=== PATIENT | male | born 1955 | race Caucasian/White ===

== ENCOUNTER 2018-05-12 19:52 | Emergency (ER) | payer MEDICAID ==
[~2018-05-12] VITALS: Ht 182.9 cm; Wt 110.0 kg
[2018-05-12] MEDS ORDERED: HALOPERIDOL LACTATE 5MG/ML VIAL IM ONE (20:45)
[2018-05-12] MEDS ORDERED: LORAZEPAM 2MG/ML CPJ IM ONE (20:45)
[2018-05-12 21:49] LABS: BASOPHILS % 0.6 % (0.0-2.0); EOSINOPHILS % 0.5 % (0.0-5.0); HEMATOCRIT. 39.4 % (42.0-52.0); HEMOGLOBIN. 12.9 g/dL (14.0-18.0); LYMPHOCYTES % 18.6 % (20.0-50.0); MEAN CORPUSCULAR HEMOGLOBIN 28.4 pg (28.0-32.0); MEAN CORPUSCULAR VOLUME 86.5 fL (80.0-94.0); MEAN PLATELET VOLUME 8.5 fl (7.4-10.4); MONOCYTES % 12.7 % (2.0-8.0); NEUTROPHILS % 67.6 % (40.0-76.0); PLATELET 268 x1000/uL (130-400); RED BLOOD CELL COUNT 4.56 mill/uL (4.7-6.1); RED CELL DISTRIBUTION WIDTH 13.4 % (11.6-14.6)
[2018-05-12 21:56] LABS: CHLORIDE 103 mEq/L (98-107)
[2018-05-12 22:00] LABS: ETHANOL BLOOD < 10 mg/dL
[2018-05-12 22:54] LABS: CLARITY URINE CLEAR (CLEAR); COLOR URINE YELLOW (YELLOW); KETONES URINE 1+ (NEGATIVE); LEUKOCYTE ESTERASE URINE NEGATIVE (NEGATIVE); NITRITE URINE NEGATIVE (NEGATIVE); OCCULT BLOOD URINE 1+ (NEGATIVE); PH URINE 5.5 (4.5-8.0); PROTEIN URINE 2+ (NEGATIVE); SPECIFIC GRAVITY URINE 1.039 (1.005-1.030); UROBILINOGEN URINE 0.2 E.U./dL (0.2-1.0)
[2018-05-12 23:04] LABS: *AMPHETAMINES SCREEN URINE PRESUMTIVE POSITIVE (NEGATIVE); *BARBITURATES SCREEN URINE NEGATIVE (NEGATIVE); *BENZODIAZEPINES SCREEN URINE NEGATIVE (NEGATIVE); *COCAINE SCREEN URINE PRESUMTIVE POSITIVE (NEGATIVE); CANNABINOID URINE SCREEN NEGATIVE (NEGATIVE); METHADONE URINE SCREEN NEGATIVE (NEGATIVE); OPIATES URINE SCREEN NEGATIVE (NEGATIVE); PHENCYCLIDINE URINE SCREEN NEGATIVE (NEGATIVE)
[2018-05-13 16:07] VITALS: BP 135/73
== END 2018-05-13 16:18 | disposition home or self-care (01) ==
LOC: ER 19:52
DX: T40.5X1A Poisoning by cocaine, accidental (unintentional), initial encounter (principal); E11.9 Type 2 diabetes mellitus without complications; R45.1 Restlessness and agitation; Y92.89 Other specified places as the place of occurrence of the external cause
CPT/HCPCS: 36415; 80053; 80305; 80307; 80329; 81003; 82962; 85025; 96372; 99284; G0482; J1630; J2060

== ENCOUNTER 2018-06-11 19:43 | Inpatient (IN) | payer MEDICAID ==
[~2018-06-11] VITALS: Ht 177.8 cm; Wt 92.5 kg
[2018-06-11] MEDS ORDERED: SODIUM CHLORIDE 0.9% 1,000 ML IV ONE ×2 (20:00→22:54)
[2018-06-11 20:52] LABS: BG BASE EXCESS -3.1 mmol/L (-2.0-2.0); BG DEOXYHEMOGLOBIN 2.5 % (0.0-5.0); BG FRACTION INSPIRED OXYGEN 21; BG HCO3 ACT 21.8 mmol/L (22.0-26.0); BG METHEMOGLOBIN 0.3 % (0.0-1.5); BG OXYGEN SATURATION 97.4 % (92.0-98.5); BG OXYHEMOGLOBIN 94.2 % (94.0-97.0); BG PCO2 38.9 mmHg (35.0-45.0); BG PH 7.367 (7.350-7.450); BG PO2 96.2 mmHg (75.0-100.0); BG SAMPLE SITE RIGHT RADIAL; BG TOTAL HEMOGLOBIN 15.2 g/dL (12.0-18.0); BG VENT MODE ROOM AIR
[2018-06-11 20:55] LABS: BASOPHILS % 0.4 % (0.0-2.0); EOSINOPHILS % 0.6 % (0.0-5.0); HEMATOCRIT. 46.6 % (42.0-52.0); HEMOGLOBIN. 15.3 g/dL (14.0-18.0); LYMPHOCYTES % 13.4 % (20.0-50.0); MEAN CORPUSCULAR HEMOGLOBIN 27.8 pg (28.0-32.0); MEAN CORPUSCULAR VOLUME 84.7 fL (80.0-94.0); MEAN PLATELET VOLUME 9.4 fl (7.4-10.4); MONOCYTES % 10.1 % (2.0-8.0); NEUTROPHILS % 75.5 % (40.0-76.0); PLATELET 261 x1000/uL (130-400); RED CELL DISTRIBUTION WIDTH 13.9 % (11.6-14.6)
[2018-06-11 21:00] LABS: CHLORIDE 99 mEq/L (98-107)
[2018-06-11 21:01] LABS: PROTHROMBIN TIME 10.2 sec (9.1-11.1)
[2018-06-11 21:07] LABS: ETHANOL BLOOD < 10 mg/dL
[2018-06-11 21:11] LABS: CREATINE KINASE 98 IU/L (39-308); CREATINE KINASE MB FRACTION 2.4 ng/mL (0.5-3.6)
[2018-06-11 21:18] LABS: BETA HYDROXYBUTYRATE 0.8 mMol/L (0.0-0.3)
[2018-06-11] MEDS ORDERED: INSULIN REGULAR (HUMULIN R) 300UNITS/3ML IV ONE (22:00)
[2018-06-11 22:13] LABS: CLARITY URINE CLEAR (CLEAR); COLOR URINE YELLOW (YELLOW); KETONES URINE TRACE (NEGATIVE); LEUKOCYTE ESTERASE URINE 1+ (NEGATIVE); NITRITE URINE NEGATIVE (NEGATIVE); OCCULT BLOOD URINE TRACE (NEGATIVE); PROTEIN URINE TRACE (NEGATIVE); SPECIFIC GRAVITY URINE 1.041 (1.005-1.030); UROBILINOGEN URINE 0.2 E.U./dL (0.2-1.0)
[2018-06-11 22:23] LABS: *AMPHETAMINES SCREEN URINE NEGATIVE (NEGATIVE); *BARBITURATES SCREEN URINE NEGATIVE (NEGATIVE); *BENZODIAZEPINES SCREEN URINE NEGATIVE (NEGATIVE); *COCAINE SCREEN URINE PRESUMTIVE POSITIVE (NEGATIVE); METHADONE URINE SCREEN NEGATIVE (NEGATIVE)
[2018-06-11 22:24] LABS: CANNABINOID URINE SCREEN NEGATIVE (NEGATIVE); OPIATES URINE SCREEN NEGATIVE (NEGATIVE); PHENCYCLIDINE URINE SCREEN NEGATIVE (NEGATIVE)
[2018-06-12] VITALS (7 sets, daily range): BP systolic 125–130; BP diastolic 71–85
[2018-06-12] MEDS ORDERED: HYDROCODONE/ACETAMINOPHEN 10/325MG TABLET PO PRN (01:30)
[2018-06-12] MEDS ORDERED: DEXTROSE 50% WATER 50ML SYRINGE IV PRN ×2 (01:30→08:45)
[2018-06-12] MEDS ORDERED: ONDANSETRON HCL 4MG/2ML INJ IV PRN (01:30)
[2018-06-12] MEDS: BLOOD SUGAR DIAGNOSTIC STRIP TEST SCH ×4 (06:33→20:56)
[2018-06-12 07:09] LABS: CHLORIDE 104 mEq/L (98-107)
[2018-06-12] MEDS ORDERED: INSULIN LISPRO 100 UNITS/ML SUBCUT SCH (07:50)
[2018-06-12] MEDS: METFORMIN HCL 500MG TABLET PO SCH ×2 (08:42→17:37)
[2018-06-12] MEDS: INSULIN LISPRO 100 UNITS/ML SUBCUT SCH ×4 (09:47→20:50)
[2018-06-12] MEDS: INSULIN GLARGINE UD 100 UNITS/ML SYR SUBCUT SCH ×2 (11:18→21:22)
[2018-06-12] MEDS ORDERED: BLOOD SUGAR DIAGNOSTIC STRIP TEST SCH (12:20)
[2018-06-12] MEDS: GLIPIZIDE 5MG TABLET PO SCH (17:36)
[2018-06-12] MEDS ORDERED: CEFTRIAXONE 1 G PREMIX 50 ML IV SCH ×2 (18:00)
[2018-06-12] MEDS: GABAPENTIN 300MG CAPSULE PO SCH (21:21)
[2018-06-12] MEDS ORDERED: INSULIN GLARGINE UD 100 UNITS/ML SYR SUBCUT SCH (22:00)
[2018-06-13 04:00] VITALS: BP 137/84
[2018-06-13] MEDS: GABAPENTIN 300MG CAPSULE PO SCH ×2 (06:26→13:05)
[2018-06-13] MEDS: BLOOD SUGAR DIAGNOSTIC STRIP TEST SCH ×2 (06:27→13:03)
[2018-06-13] MEDS: INSULIN LISPRO 100 UNITS/ML SUBCUT SCH ×2 (06:52→13:07)
[2018-06-13 06:54] LABS: HEMATOCRIT. 42.7 % (42.0-52.0); HEMOGLOBIN. 14.1 g/dL (14.0-18.0); MEAN CORPUSCULAR HEMOGLOBIN 28.1 pg (28.0-32.0); MEAN PLATELET VOLUME 9.3 fl (7.4-10.4); PLATELET 236 x1000/uL (130-400); RED BLOOD CELL COUNT 5.03 mill/uL (4.7-6.1); RED CELL DISTRIBUTION WIDTH 13.6 % (11.6-14.6)
[2018-06-13 07:44] LABS: CHLORIDE 101 mEq/L (98-107)
[2018-06-13 08:37] VITALS: BP 132/87
[2018-06-13] MEDS: GLIPIZIDE 5MG TABLET PO SCH (08:44)
[2018-06-13] MEDS: METFORMIN HCL 500MG TABLET PO SCH (08:45)
[2018-06-13] MEDS: INSULIN GLARGINE UD 100 UNITS/ML SYR SUBCUT SCH (10:39)
[2018-06-13 11:50] VITALS: BP 128/73
[2018-06-13 13:09] LABS: PLATELET ESTIMATE NORMAL
[2018-06-13 15:32] VITALS: BP 128/73
[2018-06-13 16:06] VITALS: BP 143/80
[2018-06-14 07:22] LABS: HIV SCREEN 4G Non Reactive (Non Reactive)
== END 2018-06-13 16:30 | disposition home or self-care (01) | DRG 720 ==
LOC: ER 19:43 → 6EST 21:46 → EDBEDREQTM 21:51 → EDBEDREQ 21:51 → EDBEDREQSVC 22:00 → ENRESERV 06-12 00:02
PROVIDERS: ADMIT Internal Medicine; ATTEND Internal Medicine
DX: A41.9 Sepsis, unspecified organism (principal); E11.65 Type 2 diabetes mellitus with hyperglycemia; E44.1 Mild protein-calorie malnutrition; E87.1 Hypo-osmolality and hyponatremia; B37.9 Candidiasis, unspecified; R74.0 Nonspecific elevation of levels of transaminase and lactic acid dehydrogenase [LDH]; F20.9 Schizophrenia, unspecified; N39.0 Urinary tract infection, site not specified; F19.10 Other psychoactive substance abuse, uncomplicated; F14.90 Cocaine use, unspecified, uncomplicated; F17.200 Nicotine dependence, unspecified, uncomplicated; Z59.0 Homelessness; Z91.14 Patient's other noncompliance with medication regimen; Z68.29 Body mass index [BMI] 29.0-29.9, adult
CPT/HCPCS: 36415; 36600; 71045; 80048; 80305; 82010; 82375; 82550; 82553; 82805; 82962; 83036; 83735; 83880; 84484; 87106; 87389; 93005; 96361; 96374; 96375; 97116; 97162; 99285; G0482; J0696; J1815; J2405; J7030; J7040

== ENCOUNTER 2021-01-29 11:50 | Inpatient (IN) | payer MEDICAID ==
[~2021-01-29] VITALS: Ht 172.7 cm; Wt 81.6 kg
[~2021-01-29 11:50] MED LIST: TRAM50TA3 MT
[2021-01-29] MEDS ORDERED: SODIUM CHLORIDE 0.9% 1,000 ML IV ONE (12:30)
[2021-01-29 14:01] LABS: BASOPHILS % 0.6 % (0.0-2.0); EOSINOPHILS % 1.1 % (0.0-5.0); HEMATOCRIT. 42.4 % (42.0-52.0); HEMOGLOBIN. 13.7 g/dL (14.0-18.0); MEAN CORPUSCULAR HEMOGLOBIN 27.2 pg (28.0-32.0); MEAN CORPUSCULAR VOLUME 83.7 fL (80.0-94.0); NEUTROPHILS % 53.3 % (40.0-76.0); PLATELET 287 x1000/uL (130-400); RED BLOOD CELL COUNT 5.06 mill/uL (4.7-6.1); RED CELL DISTRIBUTION WIDTH 15.9 % (11.6-14.6)
[2021-01-29 14:03] LABS: CHLORIDE 100 mEq/L (98-107); CHLORIDE 99 mEq/L (98-107)
[2021-01-29 14:06] LABS: INR 1.3; PROTHROMBIN TIME 13.4 sec (9.6-11.0)
[2021-01-29 14:10] LABS: ETHANOL BLOOD < 10 mg/dL
[2021-01-29] MEDS ORDERED: FUROSEMIDE 40MG/4ML VIAL IVP NR (14:30)
[2021-01-29] MEDS ORDERED: IPRATROPIUM/ALBUTEROL 0.5-3(2.5)MG/3ML NEB HHN PRN (15:45)
[2021-01-29] MEDS ORDERED: CLONIDINE 0.1MG TABLET PO PRN (15:45)
[2021-01-29] MEDS ORDERED: DIPHENHYDRAMINE 50MG/ML VIAL IV PRN (15:45)
[2021-01-29 15:55] LABS: CLARITY URINE CLOUDY (CLEAR); COLOR URINE DARK YELLOW (YELLOW); KETONES URINE TRACE (NEGATIVE); LEUKOCYTE ESTERASE URINE 2+ (NEGATIVE); NITRITE URINE NEGATIVE (NEGATIVE); OCCULT BLOOD URINE 2+ (NEGATIVE); PH URINE 5.5 (4.5-8.0); PROTEIN URINE 2+ (NEGATIVE); SPECIFIC GRAVITY URINE 1.022 (1.005-1.030)
[2021-01-29 16:09] LABS: *AMPHETAMINES SCREEN URINE NEGATIVE (NEGATIVE); *BARBITURATES SCREEN URINE NEGATIVE (NEGATIVE); *BENZODIAZEPINES SCREEN URINE NEGATIVE (NEGATIVE); *COCAINE SCREEN URINE PRESUMTIVE POSITIVE (NEGATIVE)
[2021-01-29 16:10] LABS: CANNABINOID URINE SCREEN PRESUMTIVE POSITIVE (NEGATIVE); METHADONE URINE SCREEN PRESUMTIVE POSITIVE (NEGATIVE); OPIATES URINE SCREEN NEGATIVE (NEGATIVE); PHENCYCLIDINE URINE SCREEN NEGATIVE (NEGATIVE)
[2021-01-29] MEDS: ENOXAPARIN 40MG/0.4ML SYR SUBCUT SCH (16:10)
[2021-01-29] MEDS ORDERED: CEFTRIAXONE 1 G PREMIX 50 ML IV NR (17:00)
[2021-01-29] MEDS ORDERED: DILTIAZEM HCL 5MG/ML 5ML VIAL IV NR (18:39)
[2021-01-29] MEDS: ASPIRIN 81MG EC TABLET PO SCH (18:59)
[2021-01-29 21:20] VITALS: BP 114/83
[2021-01-29] MEDS: DILTIAZEM HCL 60MG TABLET PO SCH (22:35)
[2021-01-29 23:51] VITALS: BP 114/83
[2021-01-30] VITALS: BP 91/65
[2021-01-30] MEDS ORDERED: MET5 MT (00:17)
[2021-01-30] MEDS: ACETAMINOPHEN 325MG TABLET PO PRN ×2 (02:58→19:30)
[2021-01-30 04:00] VITALS: BP 107/84
[2021-01-30] MEDS ORDERED: DEXTROSE 50% WATER 50ML SYRINGE IV PRN (04:45)
[2021-01-30] MEDS: DILTIAZEM HCL 60MG TABLET PO SCH ×3 (06:00→20:32)
[2021-01-30] MEDS: INSULIN LISPRO 100 UNITS/ML SUBCUT SCH ×4 (06:31→20:32)
[2021-01-30] MEDS: BLOOD SUGAR DIAGNOSTIC STRIP TEST SCH ×4 (06:31→20:32)
[2021-01-30 07:26] LABS: CHLORIDE 100 mEq/L (98-107)
[2021-01-30 07:26] LABS: BASOPHILS % 0.9 % (0.0-2.0); EOSINOPHILS % 2.8 % (0.0-5.0); HEMOGLOBIN. 13.5 g/dL (14.0-18.0); LYMPHOCYTES % 45.3 % (20.0-50.0); MEAN CORPUSCULAR HEMOGLOBIN 26.7 pg (28.0-32.0); MEAN CORPUSCULAR VOLUME 84.9 fL (80.0-94.0); MEAN PLATELET VOLUME 9.6 fl (7.4-10.4); MONOCYTES % 9.5 % (2.0-8.0); NEUTROPHILS % 41.5 % (40.0-76.0); PLATELET 234 x1000/uL (130-400); RED BLOOD CELL COUNT 5.07 mill/uL (4.7-6.1); RED CELL DISTRIBUTION WIDTH 15.9 % (11.6-14.6)
[2021-01-30 07:33] LABS: LDL CHOLESTEROL 48 mg/dL (5-100)
[2021-01-30 07:34] LABS: HDL CHOLESTEROL 26 mg/dL (40-59)
[2021-01-30 08:00] VITALS: BP 120/85
[2021-01-30] MEDS ORDERED: FUROSEMIDE 40MG/4ML VIAL IV SCH (09:00)
[2021-01-30] MEDS: ASPIRIN 81MG EC TABLET PO SCH (09:37)
[2021-01-30] MEDS: ONDANSETRON HCL 4MG/2ML INJ IV PRN (11:51)
[2021-01-30 12:00] VITALS: BP 97/40
[2021-01-30] MEDS ORDERED: LORAZEPAM 2MG/ML CPJ IV PRN (13:00)
[2021-01-30] MEDS: ENOXAPARIN 40MG/0.4ML SYR SUBCUT SCH (15:04)
[2021-01-30] MEDS: MIDODRINE HCL 5MG TABLET PO SCH (16:58)
[2021-01-30 17:07] VITALS: BP 106/69
[2021-01-30] MEDS ORDERED: ENOXAPARIN 100MG/ML SYR SUBCUT SCH (18:00)
[2021-01-30 20:00] VITALS: BP 139/94
[2021-01-30] MEDS: FUROSEMIDE 40MG/4ML VIAL IV SCH (20:31)
[2021-01-30] MEDS: ENOXAPARIN 100MG/ML SYR SUBCUT SCH (20:32)
[2021-01-31 04:00] VITALS: BP 129/72
[2021-01-31] MEDS: DILTIAZEM HCL 60MG TABLET PO SCH ×3 (05:48→22:00)
[2021-01-31] MEDS: INSULIN LISPRO 100 UNITS/ML SUBCUT SCH ×4 (06:25→21:00)
[2021-01-31] MEDS: BLOOD SUGAR DIAGNOSTIC STRIP TEST SCH ×4 (06:25→21:00)
[2021-01-31 07:54] LABS: BASOPHILS % 0.4 % (0.0-2.0); EOSINOPHILS % 2.4 % (0.0-5.0); HEMATOCRIT. 45.2 % (42.0-52.0); HEMOGLOBIN. 13.5 g/dL (14.0-18.0); LYMPHOCYTES % 33.1 % (20.0-50.0); MEAN CORPUSCULAR HEMOGLOBIN 26.2 pg (28.0-32.0); MEAN CORPUSCULAR VOLUME 87.5 fL (80.0-94.0); MONOCYTES % 10.1 % (2.0-8.0); PLATELET 232 x1000/uL (130-400); RED BLOOD CELL COUNT 5.17 mill/uL (4.7-6.1); RED CELL DISTRIBUTION WIDTH 16.6 % (11.6-14.6)
[2021-01-31 08:00] VITALS: BP 106/69
[2021-01-31 08:13] LABS: CHLORIDE 99 mEq/L (98-107)
[2021-01-31] MEDS: MIDODRINE HCL 5MG TABLET PO SCH ×3 (08:58→17:10)
[2021-01-31] MEDS: FUROSEMIDE 40MG/4ML VIAL IV SCH ×2 (08:58→21:00)
[2021-01-31] MEDS: ASPIRIN 81MG EC TABLET PO SCH (08:58)
[2021-01-31] MEDS: ENOXAPARIN 100MG/ML SYR SUBCUT SCH ×2 (09:04→21:00)
[2021-01-31 12:00] VITALS: BP 103/71
[2021-01-31 16:00] VITALS: BP 111/81
[2021-01-31] MEDS ORDERED: CEFTRIAXONE 1,000 MG in DEXTROSE 5% WATER 50 ML IV SCH (18:00)
[2021-01-31] MEDS ORDERED: VANCOMYCIN 2,000 MG in DEXT 5% WATER 500 ML IV NR (19:00)
[2021-02-01] MEDS: DILTIAZEM HCL 60MG TABLET PO SCH ×3 (06:00→21:15)
[2021-02-01 06:21] LABS: BASOPHILS % 0.5 % (0.0-2.0); EOSINOPHILS % 2.2 % (0.0-5.0); HEMOGLOBIN. 11.7 g/dL (14.0-18.0); LYMPHOCYTES % 33.1 % (20.0-50.0); MEAN CORPUSCULAR HEMOGLOBIN 26.5 pg (28.0-32.0); MEAN CORPUSCULAR VOLUME 83.7 fL (80.0-94.0); MEAN PLATELET VOLUME 9.5 fl (7.4-10.4); NEUTROPHILS % 52.2 % (40.0-76.0); PLATELET 245 x1000/uL (130-400); RED BLOOD CELL COUNT 4.42 mill/uL (4.7-6.1); RED CELL DISTRIBUTION WIDTH 16.2 % (11.6-14.6)
[2021-02-01] MEDS: BLOOD SUGAR DIAGNOSTIC STRIP TEST SCH ×4 (06:25→21:17)
[2021-02-01] MEDS: INSULIN LISPRO 100 UNITS/ML SUBCUT SCH ×4 (06:25→21:35)
[2021-02-01 06:47] LABS: CHLORIDE 99 mEq/L (98-107)
[2021-02-01] MEDS ORDERED: VANCOMYCIN 750 MG PREMIX 150 ML IV SCH (07:00)
[2021-02-01 08:00] VITALS: BP 138/88
[2021-02-01] MEDS: MIDODRINE HCL 5MG TABLET PO SCH ×3 (08:00→17:03)
[2021-02-01] MEDS: ASPIRIN 81MG EC TABLET PO SCH (08:53)
[2021-02-01] MEDS: ENOXAPARIN 100MG/ML SYR SUBCUT SCH ×2 (08:53→21:34)
[2021-02-01] MEDS: FUROSEMIDE 40MG/4ML VIAL IV SCH ×2 (09:00→21:00)
[2021-02-01] MEDS: METHADONE HCL 10MG TABLET PO SCH ×2 (11:56→17:04)
[2021-02-01 12:00] VITALS: BP 127/79
[2021-02-01 16:00] VITALS: BP 101/62
[2021-02-01 20:00] VITALS: BP 104/62
[2021-02-01] MEDS: SULFAMETHOXAZOLE/TRIMETHOPRIM 800/160MG TABLET PO SCH (21:34)
[2021-02-01 23:46] VITALS: BP 104/62
[2021-02-02] VITALS: BP 110/64
[2021-02-02] MEDS: MIDODRINE HCL 5MG TABLET PO SCH ×3 (00:57→17:31)
[2021-02-02 04:00] VITALS: BP 105/51
[2021-02-02] MEDS: DILTIAZEM HCL 60MG TABLET PO SCH ×3 (05:03→21:33)
[2021-02-02] MEDS: INSULIN LISPRO 100 UNITS/ML SUBCUT SCH ×4 (06:22→21:00)
[2021-02-02] MEDS: BLOOD SUGAR DIAGNOSTIC STRIP TEST SCH ×4 (06:22→21:00)
[2021-02-02 08:00] VITALS: BP 97/62
[2021-02-02] MEDS: ASPIRIN 81MG EC TABLET PO SCH (08:40)
[2021-02-02] MEDS: ENOXAPARIN 100MG/ML SYR SUBCUT SCH ×2 (08:40→08:48)
[2021-02-02] MEDS: SULFAMETHOXAZOLE/TRIMETHOPRIM 800/160MG TABLET PO SCH ×2 (08:41→21:13)
[2021-02-02] MEDS: FUROSEMIDE 40MG/4ML VIAL IV SCH ×2 (09:00→21:00)
[2021-02-02 09:34] LABS: CHLORIDE 106 mEq/L (98-107)
[2021-02-02] MEDS ORDERED: METHADONE HCL 10MG TABLET PO NR (11:30)
[2021-02-02 12:00] VITALS: BP_SYST 107; BP_SYST 97; BP_DIAS 62; BP_DIAS 72
[2021-02-02 16:00] VITALS: BP 110/65
[2021-02-02 20:00] VITALS: BP 107/68
[2021-02-02] MEDS: ACETAMINOPHEN 325MG TABLET PO PRN (21:13)
[2021-02-02] MEDS: ENOXAPARIN 80MG/0.8ML SYR SUBCUT SCH (21:13)
[2021-02-03] VITALS (8 sets, daily range): BP systolic 106–120; BP diastolic 55–81
[2021-02-03] MEDS: MIDODRINE HCL 5MG TABLET PO SCH ×3 (00:42→16:14)
[2021-02-03] MEDS: ACETAMINOPHEN 325MG TABLET PO PRN ×2 (04:01→16:25)
[2021-02-03] MEDS: DILTIAZEM HCL 60MG TABLET PO SCH ×3 (06:00→21:59)
[2021-02-03] MEDS: BLOOD SUGAR DIAGNOSTIC STRIP TEST SCH ×5 (06:30→21:59)
[2021-02-03] MEDS: INSULIN LISPRO 100 UNITS/ML SUBCUT SCH ×5 (06:30→21:00)
[2021-02-03] MEDS: FUROSEMIDE 40MG/4ML VIAL IV SCH (08:13)
[2021-02-03] MEDS: ENOXAPARIN 80MG/0.8ML SYR SUBCUT SCH ×2 (08:14→09:00)
[2021-02-03] MEDS: ASPIRIN 81MG EC TABLET PO SCH (08:14)
[2021-02-03] MEDS: SULFAMETHOXAZOLE/TRIMETHOPRIM 800/160MG TABLET PO SCH ×2 (08:14→22:00)
[2021-02-03 10:51] LABS: CHLORIDE 104 mEq/L (98-107)
[2021-02-03] MEDS ORDERED: SULF1TAB44 PO (13:23)
[2021-02-03] MEDS ORDERED: MIDO5TAB4 PO (13:23)
[2021-02-03] MEDS ORDERED: ASPI-1406 PO (13:23)
[2021-02-03] MEDS ORDERED: DILT60TA35 PO (13:23)
[2021-02-03] MEDS: FUROSEMIDE 40MG TABLET PO SCH (13:30)
[2021-02-03 13:36] LABS: BASOPHILS % 0.5 % (0.0-2.0); EOSINOPHILS % 1.4 % (0.0-5.0); LYMPHOCYTES % 26.8 % (20.0-50.0); MEAN CORPUSCULAR HEMOGLOBIN 28.2 pg (28.0-32.0); MEAN CORPUSCULAR VOLUME 89.6 fL (80.0-94.0); MEAN PLATELET VOLUME 9.5 fl (7.4-10.4); MONOCYTES % 10.3 % (2.0-8.0); PLATELET 204 x1000/uL (130-400); RED BLOOD CELL COUNT 2.12 mill/uL (4.7-6.1); RED CELL DISTRIBUTION WIDTH 16.2 % (11.6-14.6)
[2021-02-03] MEDS ORDERED: PANTOPRAZOLE 40MG DR TABLET PO SCH (15:15)
[2021-02-03] MEDS ORDERED: METHADONE HCL 10MG TABLET PO NR (16:00)
[2021-02-03 21:50] LABS: FOLIC ACID (FOLATE) SERUM 8.2 ng/mL (>5.38)
[2021-02-03] MEDS: PANTOPRAZOLE SODIUM 40 MG/VIAL IV SCH (22:00)
[2021-02-04] VITALS (12 sets, daily range): BP systolic 99–122; BP diastolic 46–67
[2021-02-04] MEDS: MIDODRINE HCL 5MG TABLET PO SCH ×6 (05:31→23:10)
[2021-02-04] MEDS: ONDANSETRON HCL 4MG/2ML INJ IV PRN (05:31)
[2021-02-04] MEDS: DILTIAZEM HCL 60MG TABLET PO SCH ×3 (06:00→21:45)
[2021-02-04] MEDS: BLOOD SUGAR DIAGNOSTIC STRIP TEST SCH ×4 (06:40→20:48)
[2021-02-04] MEDS: INSULIN LISPRO 100 UNITS/ML SUBCUT SCH ×4 (07:10→20:48)
[2021-02-04] MEDS: FUROSEMIDE 40MG TABLET PO SCH ×2 (09:00→11:09)
[2021-02-04] MEDS: SULFAMETHOXAZOLE/TRIMETHOPRIM 800/160MG TABLET PO SCH ×3 (09:00→20:48)
[2021-02-04] MEDS: ASPIRIN 81MG EC TABLET PO SCH ×2 (09:00→11:09)
[2021-02-04] MEDS: PANTOPRAZOLE SODIUM 40 MG/VIAL IV SCH ×2 (09:05→20:47)
[2021-02-04 10:01] LABS: BASOPHILS % 0.9 % (0.0-2.0); EOSINOPHILS % 2.3 % (0.0-5.0); HEMATOCRIT. 23.9 % (42.0-52.0); HEMOGLOBIN. 8.1 g/dL (14.0-18.0); LYMPHOCYTES % 26.1 % (20.0-50.0); MEAN CORPUSCULAR HEMOGLOBIN 29.7 pg (28.0-32.0); MEAN CORPUSCULAR VOLUME 87.7 fL (80.0-94.0); MEAN PLATELET VOLUME 9.3 fl (7.4-10.4); MONOCYTES % 10.2 % (2.0-8.0); NEUTROPHILS % 60.5 % (40.0-76.0); PLATELET 182 x1000/uL (130-400); RED BLOOD CELL COUNT 2.73 mill/uL (4.7-6.1); RED CELL DISTRIBUTION WIDTH 17.1 % (11.6-14.6)
[2021-02-04 10:27] LABS: CHLORIDE 109 mEq/L (98-107)
[2021-02-04] MEDS ORDERED: LACTULOSE 20G/30ML UDC PO NR (13:15)
[2021-02-04] MEDS ORDERED: METHADONE HCL 10MG TABLET PO PRN (14:15)
[2021-02-04] MEDS ORDERED: CYCLOBENZAPRINE 10MG TABLET PO PRN (14:30)
[2021-02-04] MEDS: METHADONE HCL 10MG TABLET PO PRN (20:48)
[2021-02-05] VITALS: BP 104/77
[2021-02-05 04:00] VITALS: BP 119/71
[2021-02-05] MEDS: DILTIAZEM HCL 60MG TABLET PO SCH ×2 (05:03→14:08)
[2021-02-05] MEDS: BLOOD SUGAR DIAGNOSTIC STRIP TEST SCH ×2 (05:41→11:40)
[2021-02-05] MEDS: METHADONE HCL 10MG TABLET PO PRN (05:46)
[2021-02-05] MEDS: INSULIN LISPRO 100 UNITS/ML SUBCUT SCH ×2 (06:10→12:10)
[2021-02-05 08:00] VITALS: BP 115/59
[2021-02-05] MEDS: SULFAMETHOXAZOLE/TRIMETHOPRIM 800/160MG TABLET PO SCH (09:31)
[2021-02-05] MEDS: ASPIRIN 81MG EC TABLET PO SCH (09:31)
[2021-02-05] MEDS: PANTOPRAZOLE SODIUM 40 MG/VIAL IV SCH (09:31)
[2021-02-05] MEDS: FUROSEMIDE 40MG TABLET PO SCH (09:31)
[2021-02-05] MEDS: MIDODRINE HCL 5MG TABLET PO SCH (09:32)
[2021-02-05 12:43] VITALS: BP 118/62
[2021-02-05] MEDS ORDERED: PANT40TA51 MT (15:35)
[2021-02-05] MEDS ORDERED: SUCR1TAB30 MT (15:35)
== END 2021-02-05 14:55 | disposition left against medical advice (07) | DRG 720 ==
LOC: ER 11:50 → ENRESERV 20:29 → 7EST 21:53
PROVIDERS: ADMIT Internal Medicine; ATTEND Internal Medicine
PROC: 30233N1 Transfusion of Nonautologous Red Blood Cells into Peripheral Vein, Percutaneous Approach (ICD-10-PCS; principal; 2021-02-03)
DX: A41.9 Sepsis, unspecified organism (principal); I21.4 Non-ST elevation (NSTEMI) myocardial infarction; E11.65 Type 2 diabetes mellitus with hyperglycemia; F20.9 Schizophrenia, unspecified; I47.1 Supraventricular tachycardia; I11.0 Hypertensive heart disease with heart failure; I50.20 Unspecified systolic (congestive) heart failure; I42.0 Dilated cardiomyopathy; T68.XXXA Hypothermia, initial encounter; I48.92 Unspecified atrial flutter; K92.2 Gastrointestinal hemorrhage, unspecified; Z53.29 Procedure and treatment not carried out because of patient's decision for other reasons; F11.10 Opioid abuse, uncomplicated; F14.10 Cocaine abuse, uncomplicated; F17.200 Nicotine dependence, unspecified, uncomplicated; N39.0 Urinary tract infection, site not specified; F17.210 Nicotine dependence, cigarettes, uncomplicated; T50.905A Adverse effect of unspecified drugs, medicaments and biological substances, initial encounter; R74.01 Elevation of levels of liver transaminase levels; F12.10 Cannabis abuse, uncomplicated; D64.9 Anemia, unspecified; M47.26 Other spondylosis with radiculopathy, lumbar region; M51.16 Intervertebral disc disorders with radiculopathy, lumbar region; Z20.822 Contact with and (suspected) exposure to COVID-19; Z79.899 Other long term (current) drug therapy; Z91.19 Patient's noncompliance with other medical treatment and regimen; Z79.84 Long term (current) use of oral hypoglycemic drugs; Y92.89 Other specified places as the place of occurrence of the external cause; B96.20 Unspecified Escherichia coli [E. coli] as the cause of diseases classified elsewhere
CPT/HCPCS: 36415; 71045; 78278; 80048; 80053; 80061; 80202; 80305; 80320; 81003; 82607; 82728; 82746; 82962; 83036; 83735; 83880; 84145; 84443; 84484; 85025; 85044; 86850; 86900; 86920; 87077; 87186; 87426; 93005; 93306; 93970; 99291; A9560; C1893; C9113; J0696; J1650; J1815; J1940; J2405; J3370; J3490; J7030; J7040; J7060; P9016; G0480

== ENCOUNTER 2021-04-04 09:21 | Emergency (ER) | payer MEDICAID ==
[~2021-04-04] VITALS: Ht 172.7 cm; Wt 85.0 kg
[~2021-04-04 09:21] MED LIST changes: +ASPI-1406 PO; +DILT60TA35 PO; +METH-817 MT; +MIDO5TAB4 PO; +PANT40TA51 MT; +SUCR1TAB30 MT; +SULF1TAB44 PO
[2021-04-04 09:51] LABS: CLARITY URINE CLEAR (CLEAR); COLOR URINE YELLOW (YELLOW); KETONES URINE NEGATIVE (NEGATIVE); LEUKOCYTE ESTERASE URINE NEGATIVE (NEGATIVE); NITRITE URINE NEGATIVE (NEGATIVE); OCCULT BLOOD URINE NEGATIVE (NEGATIVE); PROTEIN URINE 1+ (NEGATIVE); SPECIFIC GRAVITY URINE 1.019 (1.005-1.030); UROBILINOGEN URINE 0.2 E.U./dL (0.2-1.0)
[2021-04-04 10:29] LABS: BASOPHILS % 1.2 % (0.0-2.0); HEMATOCRIT. 24.8 % (42.0-52.0); LYMPHOCYTES % 19.9 % (20.0-50.0); MEAN CORPUSCULAR HEMOGLOBIN 24.6 pg (28.0-32.0); MEAN CORPUSCULAR VOLUME 75.8 fL (80.0-94.0); MEAN PLATELET VOLUME 8.2 fl (7.4-10.4); NEUTROPHILS % 65.9 % (40.0-76.0); PLATELET 267 x1000/uL (130-400); RED BLOOD CELL COUNT 3.27 mill/uL (4.7-6.1); RED CELL DISTRIBUTION WIDTH 21.3 % (11.6-14.6)
[2021-04-04] MEDS ORDERED: PIPERACILLIN/TAZ 3.375G PREMIX 50 ML IV ONE (10:30)
[2021-04-04] MEDS ORDERED: PIPERACILLIN/TAZOBACTAM 3.375GM/50ML PREMIX IV ONE (10:30)
[2021-04-04 10:35] LABS: CHLORIDE 112 mEq/L (98-107)
[2021-04-04 10:40] LABS: INR 1.1; PROTHROMBIN TIME 11.4 sec (9.6-11.0)
[2021-04-04] MEDS ORDERED: SODIUM CHLORIDE 0.9% 1000ML BAG (SEPSIS BOLUS) IV ONE (12:00)
[2021-04-04 12:48] LABS: *AMPHETAMINES SCREEN URINE NEGATIVE (NEGATIVE); *BARBITURATES SCREEN URINE NEGATIVE (NEGATIVE)
[2021-04-04 12:49] LABS: *BENZODIAZEPINES SCREEN URINE NEGATIVE (NEGATIVE); *COCAINE SCREEN URINE PRESUMTIVE POSITIVE (NEGATIVE); CANNABINOID URINE SCREEN PRESUMTIVE POSITIVE (NEGATIVE); METHADONE URINE SCREEN PRESUMTIVE POSITIVE (NEGATIVE); OPIATES URINE SCREEN PRESUMTIVE POSITIVE (NEGATIVE); PHENCYCLIDINE URINE SCREEN PRESUMTIVE POSITIVE (NEGATIVE)
[2021-04-04 14:00] VITALS: BP 144/88
[2021-04-04] MEDS ORDERED: IOHEXOL-300 100 ML BOTTLE ONE (14:16)
== END 2021-04-04 14:34 | disposition short-term general hospital (02) ==
LOC: ER 09:30
DX: A41.9 Sepsis, unspecified organism (principal); R10.84 Generalized abdominal pain; E11.9 Type 2 diabetes mellitus without complications; F20.9 Schizophrenia, unspecified; F17.290 Nicotine dependence, other tobacco product, uncomplicated; F14.10 Cocaine abuse, uncomplicated; Z79.899 Other long term (current) drug therapy
CPT/HCPCS: 36415; 71045; 74177; 80053; 80305; 81003; 83605; 84145; 84484; 85025; 85610; 87040; 96361; 96365; 99285; J2543; J7030; J7040; Q9967